=== PATIENT | female | born 1955 | race Caucasian/White ===

== ENCOUNTER → 2020-02-26 | Outpatient (CLI) | payer OTHER | LOC: LAB 16:41 | PROVIDERS: ATTEND Hospitalist | DX: Z20.828 Contact with and (suspected) exposure to other viral communicable diseases (principal) ==

== ENCOUNTER → 2020-05-18 | Outpatient (CLI) | payer OTHER | LOC: LAB 12:10 | PROVIDERS: ATTEND Specialist | DX: U07.1 COVID-19 (principal) ==